=== PATIENT | female | born 2000 | race Two or more races ===

== ENCOUNTER 2023-09-19 18:35 | Emergency (ER) | payer OTHER ==
[~2023-09-19] VITALS: Ht 162.6 cm; Wt 71.7 kg
[2023-09-19 18:36] VITALS: BP 122/77; TEMP 98.2; O2SAT 100
== END 2023-09-19 21:01 | disposition left against medical advice (07) ==
LOC: M ED 18:35
DX: Z53.21 Procedure and treatment not carried out due to patient leaving prior to being seen by health care provider (principal)

== ENCOUNTER 2023-09-19 18:35 | Emergency (ER) | payer OTHER ==
[~2023-09-19] VITALS: Ht 162.6 cm; Wt 71.7 kg
[2023-09-19 23:47] VITALS: BP 118/68; TEMP 98.8; O2SAT 98
== END 2023-09-19 23:48 | disposition home or self-care (01) ==
LOC: M ED 18:35
DX: H04.123 Dry eye syndrome of bilateral lacrimal glands (principal); L56.8 Other specified acute skin changes due to ultraviolet radiation

== ENCOUNTER → 2023-10-07 | Outpatient (CLI) | payer OTHER | LOC: M PLAIMG 07:34 | PROVIDERS: ATTEND General Practice | DX: M25.531 Pain in right wrist (principal); M79.631 Pain in right forearm ==

== ENCOUNTER 2023-11-03 22:45 | Emergency (ER) | payer OTHER ==
[~2023-11-03] VITALS: Ht 160 cm; Wt 70.9 kg
[2023-11-03 23:58] LABS: RSV AMPLIFICATION NEGATIVE (NEGATIVE)
[2023-11-04 06:00] VITALS: BP 124/67; TEMP 98.7; O2SAT 99
== END 2023-11-04 06:37 | disposition home or self-care (01) ==
LOC: M ED 22:45
DX: J12.2 Parainfluenza virus pneumonia (principal); J06.9 Acute upper respiratory infection, unspecified

== ENCOUNTER → 2023-12-16 | Outpatient (CLI) | payer OTHER | LOC: M SOG 07:53 | PROVIDERS: ATTEND Orthopaedic Surgery | DX: M79.631 Pain in right forearm (principal); M25.531 Pain in right wrist; Z53.9 Procedure and treatment not carried out, unspecified reason ==

== ENCOUNTER 2024-06-19 08:55 | Inpatient (IN) | payer OTHER ==
[~2024-06-19] VITALS: Ht 160 cm; Wt 72.8 kg
[2024-06-19] MEDS ORDERED: IBUP-1729 PO (09:18)
[2024-06-19] MEDS ORDERED: MULT-90 PO (09:18)
[2024-06-19 09:55] LABS: HEMATOCRIT 37.3 % (36.0-47.0); HEMOGLOBIN 12.8 g/dl (12.0-15.5); MEAN CORPUSCULAR HEMOGLOBIN 31.5 pg (27.0-33.0); MEAN CORPUSCULAR HGB CONC 34.3 g/dl (32.0-36.5); MEAN CORPUSCULAR VOLUME 91.9 fl (80.0-96.0); PLATELET COUNT, AUTOMATED 195 10^3/uL (150-450); RED BLOOD COUNT 4.06 10^6/uL (4.00-5.40); WHITE BLOOD COUNT 9.6 10^3/uL (4.0-10.0)
[2024-06-19 10:20] LABS: AMPHETAMINES LEVEL URINE NEGATIVE (NEGATIVE); BARBITURATES URINE NEGATIVE (NEGATIVE); BENZODIAZEPINES URINE NEGATIVE (NEGATIVE); CANNABINOIDS URINE NEGATIVE (NEGATIVE); COCAINE METABOLITE URINE NEGATIVE (NEGATIVE); METHADONE URINE NEGATIVE (NEGATIVE); OPIATES URINE NEGATIVE (NEGATIVE); PHENCYCLIDINE URINE NEGATIVE (NEGATIVE)
[2024-06-19 10:22] LABS: HCG, SERUM QUALITATIVE NEGATIVE (NEGATIVE)
[2024-06-19 10:23] LABS: SALICYLATE LEVEL < 3.0 MG/DL (<30)
[2024-06-19 10:24] LABS: ALBUMIN 3.8 G/DL (3.2-5.2); ALKALINE PHOSPHATASE 80 U/L (35-104); ALT/SGPT 22 U/L (7.0-40); AST/SGOT 14 U/L (<34); BILIRUBIN,DIRECT 0.2 MG/DL (<0.4); BILIRUBIN,TOTAL 0.6 MG/DL (0.3-1.2); BLOOD UREA NITROGEN 11 MG/DL (9-23); CALCIUM LEVEL 8.8 MG/DL (8.5-10.1); CARBON DIOXIDE LEVEL 26 MMOL/L (20-31); CHLORIDE LEVEL 108 MMOL/L (98-107); CREATININE FOR GFR 0.53 MG/DL (0.55-1.30); GLOMERULAR FILTRATION RATE > 60.0 (>60); GLUCOSE, FASTING 82 MG/DL (60-100); POTASSIUM SERUM 3.8 MMOL/L (3.5-5.1); SODIUM LEVEL 141 MMOL/L (136-145); TOTAL PROTEIN 7.5 G/DL (5.7-8.2)
[2024-06-19 10:27] LABS: THYROID STIMULATING HORMONE 3.571 uIU/ML (0.55-4.78)
[2024-06-19 10:33] LABS: ETHYL ALCOHOL (ETHANOL) 0.009 % (0.000-0.010)
[2024-06-19] MEDS ORDERED: OXYB10TA23 PO (11:21)
[2024-06-19] MEDS ORDERED: HOME MED LIST COMPLETE! XX SCH (11:25)
[2024-06-19] MEDS ORDERED: MOM 30ML SUSPENSION UDC PO PRN (15:55)
[2024-06-19] MEDS: traZODone 50 MG TAB PO PRN (23:06)
[2024-06-20 06:39] VITALS: BP 119/81; TEMP 97.6; O2SAT 97
[2024-06-20] MEDS: IBUPROFEN 400MG TAB PO PRN (14:18)
[2024-06-20 15:32] VITALS: BP 108/80; TEMP 98.2; O2SAT 100
[2024-06-20 16:30] LABS: KETONE, URINE AUTO RFX NEGATIVE (NEGATIVE); LEUKOCYTE ESTERASE UR AUTO RFX NEGATIVE (NEGATIVE); MUCUS, URINE RFX SMALL (NEGATIVE); NITRITE, URINE AUTO RFX NEGATIVE (NEGATIVE); RBC, URINE AUTO RFX 2 /HPF (0-3); SQUAM EPITHELIAL CELL UR AURFX 1 /HPF (0-6); WBC, URINE AUTO RFX 0 /HPF (0-3)
[2024-06-20] MEDS: ACETAMINOPHEN 325 MG TAB PO PRN (16:46)
[2024-06-21 06:52] VITALS: BP 110/71; TEMP 97.8; O2SAT 98
[2024-06-21] MEDS: ESCITALOPRAM OXALATE 10 MG TAB (LEXAPRO) PO SCH (09:05)
[2024-06-21 15:38] VITALS: BP 125/64; TEMP 97.8; O2SAT 98
[2024-06-22 07:03] VITALS: BP 112/62; TEMP 97.6; O2SAT 97
[2024-06-22 17:28] VITALS: BP 132/73; TEMP 98.5; O2SAT 97
[2024-06-23 07:09] VITALS: BP 118/74; TEMP 97.8; O2SAT 97
[2024-06-23 17:13] VITALS: BP 130/78; TEMP 97.6; O2SAT 98
[2024-06-24] MEDS: traZODone 25MG PER 1/2 TABLET PO PRN (01:06)
[2024-06-24 06:40] VITALS: BP 113/62; TEMP 97.9; O2SAT 100
[2024-06-24 15:22] VITALS: BP 118/70; TEMP 97.3; O2SAT 97
[2024-06-25 06:32] VITALS: BP 109/62; TEMP 97.9; O2SAT 97
[2024-06-25 16:51] VITALS: BP 119/71; TEMP 98.2; O2SAT 99
[2024-06-26 06:46] VITALS: BP 105/65; TEMP 97.9; O2SAT 96
[2024-06-26 15:57] VITALS: BP 117/74; TEMP 98.6; O2SAT 98
[2024-06-27 06:51] VITALS: BP 119/78; TEMP 97.9; O2SAT 97
[2024-06-27 16:09] VITALS: BP 113/70; TEMP 98.5; O2SAT 98
[2024-06-27] MEDS: OLANZapine ORAL DISINTEGRATING TAB 5MG PO PRN (17:41)
[2024-06-28 06:50] VITALS: BP 94/72; TEMP 97.2; O2SAT 100
[2024-06-28 15:31] VITALS: BP 107/68; TEMP 98.4; O2SAT 99
[2024-06-29] MEDS ORDERED: TRAZ-252 PO (03:03)
[2024-06-29] MEDS ORDERED: HYDR-3363 PO (03:03)
[2024-06-29] MEDS ORDERED: LEXA1TAB PO (03:03)
[2024-06-29 06:29] VITALS: BP 112/55; TEMP 97.6; O2SAT 97
== END 2024-06-29 13:43 | disposition home or self-care (01) | DRG 885 ==
LOC: EDBD 08:55 → M ED 08:55 → M ED INP 13:14 → M PSY 14:21
PROVIDERS: ADMIT Psychiatry & Neurology Psychiatry; ATTEND Psychiatry & Neurology Psychiatry
DX: F32.1 Major depressive disorder, single episode, moderate (principal); U07.1 COVID-19; R45.851 Suicidal ideations; F43.10 Post-traumatic stress disorder, unspecified; Z79.899 Other long term (current) drug therapy; F41.9 Anxiety disorder, unspecified

== ENCOUNTER 2024-07-18 23:35 | Emergency (ER) | payer OTHER ==
[~2024-07-18] VITALS: Ht 160 cm; Wt 74.4 kg
[~2024-07-18 23:35] MED LIST: HYDR-3363 PO; IBUP-1729 PO; LEXA1TAB PO; MULT-90 PO; OXYB10TA23 PO; TRAZ-252 PO
[2024-07-19] MEDS ORDERED: PYRI1TAB5 PO (01:27)
[2024-07-19] MEDS: PHENAZOPYRIDINE 100 MG TAB PO ONE (01:32)
[2024-07-19 01:45] VITALS: BP 123/75; TEMP 97.3; O2SAT 99
== END 2024-07-19 01:49 | disposition home or self-care (01) ==
LOC: M ED 23:35
DX: F32.A Depression, unspecified (principal); F41.9 Anxiety disorder, unspecified; Z79.899 Other long term (current) drug therapy